=== PATIENT | female | born 1995 | race Caucasian/White ===

== ENCOUNTER 2020-04-21 11:25 | Emergency (ER) | payer OTHER, SELFPAY ==
[2020-04-21 11:43] VITALS: BP 117/73; PULSE 79; RESP 18; TEMP 37.3; O2SAT 97; BMI 37.5
--- NOTE | 2020-04-21 11:50 | XR_ITS ---
EXAMINATION: XR CHEST CLINICAL INFORMATION: Dyspnea. COMPARISON: None TECHNIQUE: Frontal view of the chest was obtained. FINDINGS: No significant abnormality is noted involving the heart, lungs, mediastinum, bony thorax or soft tissues. XR/XR chest 1V IMPRESSION: Unremarkable chest examination.
--- NOTE | 2020-04-21 11:56 | ED_ITS ---
HPI - URI/Sore Throat General Chief Complaint: Upper Respiratory Symptoms Stated Complaint: cough Time Seen by Provider: 04/21/20 11:50 Source: patient Mode of arrival: ambulatory Limitations: no limitations History of Present Illness HPI Narrative: 24 yo female with runny nose post nasal drip states she had CXR 03/11 at [facility] thinks she might have had pneumonia, her runny nose and clear mucous is mostly at night while laying flat has not taken any allergy medications MD elicited complaint: cough and rhinorrhea Onset (ago): month(s) (2) Consistency: intermittent Severity: mild Description of mucous: clear Able to tolerate fluids by mouth: Yes Exacerbating factors: supine positioning Relieving factors: nothing Associated symptoms: rhinorrhea Treatments prior to arrival: none Related Data Previous Rx's Medication Instructions Recorded cetirizine 10 mg PO DAILY PRN #30 cap 04/21/20 fluticasone propionate 1 spray INTRANASAL DAILY #9.9 ml 04/21/20 Allergies Allergy/AdvReac Type Severity Reaction Status Date / Time No Known Allergies Allergy Verified 04/21/20 11:43 Review of Systems Review of Systems: Constitutional : No Weight loss, No Fever, No Chills, No Fatigue, No Malaise ENT/Mouth : No sore throat,pos Rhinorrhea Eyes: No Eye Pain, No Swelling, No Redness Cardiovascular : No Chest Pain, No SOB, No Dyspnea on Exertion, No Orthopnea, No Edema, No Palpitations Respiratory : pos Cough, No Sputum, No Wheezing Gastrointestinal : No Nausea, No Vomiting, No Diarrhea, No Constipation, No abdominal Pain, No Hematochezia, No Melena Genitourinary : No Dysuria, No Urinary Frequency, No Hematuria, Musculoskeletal : No joint pain, No Myalgias, No Joint Swelling Skin : No Skin Lesions, No rash Neuro : No Weakness, No Numbness, No Dizziness, No Headache PMFSH Past Medical History Attestation statement: The following information was validated with the patient. Medical History WPW (Jsnui-Klyrzefuc-Mlqve syndrome) Social History Social History (Updated 04/21/20 @ 12:06 by Anabella Beck DO) Smoking Status: Never smoker Advance Directives: No Advance Directives Information Provided: No Physical Exam Vital Signs: Vital Signs: Last Vital Signs Temp 99.2 F 04/21/20 11:43 Pulse 79 04/21/20 11:43 Resp 18 04/21/20 11:43 BP 117/73 04/21/20 11:43 Pulse Ox 97 04/21/20 11:43 Body Mass Index 37.5 Appearance: Alert. Oriented X3. No acute distress. Eyes: Pupils equal, round and reactive to light. ENT: Pharynx normal. Neck: Normal inspection. Neck supple. CVS: Normal heart rate and rhythm. Pulses normal. Respiratory: No respiratory distress. Breath sounds normal. Abdomen: Soft and -. Skin: Skin warm and dry. Normal skin color. Normal skin turgor. Extremities: No lower extremity edema. No calf ttp Neuro: Oriented X 3. No motor deficit. No sensory deficit. MDM - URI/Sore Throat MDM Narrative Medical decision making narrative: 24 yo female with longstanding runny nose worse at night when laying down, thinks she might have had pneumonia at [facility] in March but no treatmetns and the story is vague - her history seems mostly con sistent with post nasal drip, will obtain CXR, COVID swab, start on zyrtec and flonase dispo per results and findings. Lab Data Labs: Lab Results 04/21/20 Range/Units 12:15 Coronavirus (PCR) NEGATIVE (Negative) Influenza Type A (PCR) NEGATIVE (Negative) Influenza Type B (PCR) NEGATIVE (Negative) RSV RNA Qual (PCR) NEGATIVE (Negative) Discharge Plan Discharge Clinical Impression: Allergic rhinitis Qualifiers: Allergic rhinitis trigger: unspecified Allergic rhinitis seasonality: unspecified Qualified Code(s): J30.9 - Allergic rhinitis, unspecified Patient Disposition: Home, Self-Care Instructions: Allergic Rhinitis (ED) Additional Instructions: return to ED for any worsening symptoms or concerns YOUR CHEST XRAY WAS NORMAL AND SHOWED NO PNEUMONIA, YOUR COVID FLU AND RSV SWABS WERE NEGATIVE Prescriptions: New fluticasone propionate 50 mcg/actuation spray,suspension 1 spray intranasal DAILY Qty: 9.9 RF: 1 cetirizine 10 mg capsule 10 mg PO DAILY PRN (Reason: allergy symptoms) Qty: 30 RF: 1 Referrals: Physician,None [Primary Care Provider] - 1 week (PCP IF NOT BETTER 1 WEEK) Stand Alone Forms: Work/School Release
[2020-04-21 13:09] LABS: Influenza A PCR NEGATIVE (Negative); Influenza B PCR NEGATIVE (Negative); Resp Syncy Virus RNA Qual PCR NEGATIVE (Negative); SARS COV2 PCR INHOUSE NEGATIVE (Negative)
== END 2020-04-21 13:45 | disposition home or self-care (01) ==
PROVIDERS: Emergency Provider Emergency Medicine
DX: J30.9 Allergic rhinitis, unspecified (principal); Z20.822 Contact with and (suspected) exposure to COVID-19; Z79.899 Other long term (current) drug therapy
CPT/HCPCS: 0241U; 36415; 71045; 99283

== ENCOUNTER 2020-05-17 11:20 | Emergency (ER) | payer OTHER, SELFPAY ==
--- NOTE | ~2020-05-17 | XR_ITS ---
EXAMINATION: XR RIBS, RIGHT CLINICAL INFORMATION: Rib pain COMPARISON: Chest x-ray of April 21, 2020 TECHNIQUE: PA chest and 3 views of the right ribs FINDINGS: There is no evidence of acute parenchymal disease, pneumothorax, or pleural effusion. Heart normal size. No evidence of pulmonary edema. 3 views of the right ribs do not demonstrate any abnormal destructive bony lesions. On the single view there is question of a nondisplaced fracture anterior aspect of the right ninth rib. XR/XR ribs RT min 3V w CXR1V IMPRESSION: No acute parenchymal disease within the chest. Question nondisplaced fracture anterior aspect right ninth rib.
[2020-05-17 11:42] VITALS: BP 104/66; PULSE 86; RESP 16; TEMP 36.9; O2SAT 97; BMI 41.9
--- NOTE | 2020-05-17 13:23 | ED.GENADULT ---
HPI - General Adult General Chief complaint: General Medical Stated complaint: lump on side Time Seen by Provider: 05/17/20 13:23 Source: patient Mode of arrival: ambulatory Limitations: no limitations History of Present Illness HPI narrative: 24 y/o female presenting with painful area under her right breast. She states 2 days ago she felt a small bump that was tender to touch. She denies trauma or recent injury. She has been wearing a bra that was too tight with an underwire that was digging into her. She has been rubbing it and it got slightly bigger and more painful. She denies any SOB, fever, chills, no skin changes, no breast masses that she could feel. She is concerned about lung cancer because her mother had lung cancer at a young age. She is a former smoker. MD complaint: right anterior chest tenderness Onset (ago): day(s) (2) Location: chest Radiation: non-radiation Severity: mild Quality: aching Pain Consistency: intermittent Relieving factors: rest Exacerbating factors: other (palpation) Associated symptoms: denies other symptoms Treatments prior to arrival: none Related Data Previous Rx's Medication Instructions Recorded cetirizine 10 mg PO DAILY PRN #30 cap 04/21/20 fluticasone propionate 1 spray INTRANASAL DAILY #9.9 ml 04/21/20 cyclobenzaprine 5 mg PO TID PRN #6 tab 05/17/20 ibuprofen 600 mg PO Q8H PRN #15 tab 05/17/20 lidocaine [Lidoderm] 1 patch TOPICAL DAILY #15 ea 05/17/20 Allergies Allergy/AdvReac Type Severity Reaction Status Date / Time No Known Allergies Allergy Verified 05/17/20 11:49 Review of Systems Review of Systems: Constitutional: No Fever, No Chills Cardiovascular: + Chest Pain (only on palpation) No SOB Respiratory: No Cough, No Sputum, No Wheezing, No dyspnea Gastrointestinal: No Nausea, No Vomiting, No Diarrhea, No abdominal Pain Genitourinary: No Dysuria, No Urinary Frequency, No Hematuria Musculoskeletal: No joint pain, No Myalgias Skin: No Skin Lesions, No rash Neuro: No Weakness, No Numbness, No Dizziness, No Headache Psych: No Anxiety/Panic, No Depression Heme/Lymph: No Bruising, No Lymphadenopathy PMFSH Past Medical History Attestation statement: The following information was validated with the patient. Medical History WPW (Fsukm-Vnlzannly-Xecap syndrome) Social History Social History (Updated 04/21/20 @ 12:06 by Anabella Beck DO) Smoking Status: Never smoker Advance Directives: No Advance Directives Information Provided: Yes Physical Exam Vital Signs: Vital Signs: Last Vital Signs Temp 98.4 F 05/17/20 11:42 Pulse 86 05/17/20 11:42 Resp 16 05/17/20 11:42 BP 104/66 05/17/20 11:42 Pulse Ox 97 05/17/20 11:42 Body Mass Index 41.9 Appearance: Alert. Oriented X3. No acute distress. HEENT: normal inspection CVS: Normal heart rate and rhythm. Pulses normal. Respiratory: No respiratory distress. Lungs CTAB. Right anterior chest tenderness under right breast with soft tissue tenderness, no palpable mass. no breast mass or axillary LAD. No skin changes. Skin: Skin warm and dry. Normal skin color. Normal skin turgor. No rashes. Extremities: atraumatic, no edema, multiple tattoos. Neuro: Oriented X 3. No motor deficit. No sensory deficit. Course Course Course Narrative: 24 y/o female with right anterior chest pain after she was wearing a bra that was too tight. Exam is benign. CXR/Rib XR shows ?right anterior rib fx. She denies history of recent trauma but reports old fall with injury to the right side many months ago. No SOB. It is likely soft tissue/muscle wall irritation directly related to her bra. She was counseled on management and encouraged to f/u with her PCP if the pain persists or if she feels the lump persist. She is stable for discharge. Discharge Plan Discharge Clinical Impression: Chest wall pain Patient Disposition: Home, Self-Care Instructions: Chest Wall Pain (ED) Additional Instructions: Use ice to the area several times per day. Avoid massaging it and let it rest. Take the prescribed medications as needed for pain. Wear a wireless bra or a sports bra until the pain is resolved. Follow up with your doctor next week. If the pain worsens come back to the ER for further evalaution. Prescriptions: New lidocaine [Lidoderm] 5 % adhesive patch,medicated 1 patch topical DAILY Qty: 15 RF: 0 ibuprofen 600 mg tablet 600 mg PO Q8H PRN (Reason: pain) Qty: 15 RF: 0 cyclobenzaprine 5 mg tablet 5 mg PO TID PRN (Reason: muscle spasm) Qty: 6 RF: 0 No Action fluticasone propionate 50 mcg/actuation spray,suspension 1 spray intranasal DAILY Qty: 9.9 RF: 1 cetirizine 10 mg capsule 10 mg PO DAILY PRN (Reason: allergy symptoms) Qty: 30 RF: 1
== END 2020-05-17 13:50 | disposition home or self-care (01) ==
PROVIDERS: Emergency Provider Emergency Medicine Emergency Medical Services
DX: R07.89 Other chest pain (principal)
CPT/HCPCS: 71101; 99283

== ENCOUNTER 2021-06-06 16:55 | Emergency (ER) | payer MEDICAID, SELFPAY ==
[2021-06-06 17:00] VITALS: BP 134/85; PULSE 94; RESP 18; TEMP 36.8; O2SAT 96; BMI 37.1
[2021-06-06 17:24] LABS: Appearance Urine CLOUDY; Color Urine YELLOW; Glucose Urine UA NEG (NEG); Leukocyte Esterase Urine TRACE (NEG); Nitrite Urine NEG (NEG); UACC Culture Trigger YES; Urine Blood 2+ (NEG); Urine Ketones NEG (NEG); Urine Protein NEG (NEG-TRACE)
[2021-06-06 17:30] LABS: UPreg QC Valid YES; Urine Pregnancy NEGATIVE (NEGATIVE)
--- NOTE | 2021-06-06 17:39 | ED.FEMALEGU ---
HPI - Female Genitourinary General Chief complaint: Urogenital-Female Stated complaint: ?uti Time Seen by Provider: 06/06/21 17:13 History of Present Illness HPI Narrative: I did not see this patient there is a full note from Dr. jay Related Data Previous Rx's Medication Instructions Recorded cetirizine 10 mg capsule 10 mg PO DAILY PRN #30 cap 04/21/20 fluticasone propionate 50 1 spray INTRANASAL DAILY #9.9 ml 04/21/20 mcg/actuation nasal spray,suspension cyclobenzaprine 5 mg tablet 5 mg PO TID PRN #6 tab 05/17/20 ibuprofen 600 mg tablet 600 mg PO Q8H PRN #15 tab 05/17/20 lidocaine 5 % topical patch 1 patch TOPICAL DAILY #15 ea 05/17/20 (Lidoderm) doxycycline hyclate 100 mg tablet 100 mg PO Q12H 14 Days #28 tab 06/06/21 metronidazole 500 mg tablet 500 mg PO BID 14 Days #28 tab 06/06/21 Allergies Allergy/AdvReac Type Severity Reaction Status Date / Time No Known Allergies Allergy Verified 05/17/20 11:49 COUNTS INCLUDE 234 BEDS AT THE [facility] Past Medical History Medical History WPW (Irxyy-Oithxkvpl-Nuojj syndrome) Social History Social History (Updated 04/21/20 @ 12:06 by Anabella Beck DO) Advance Directives: No Advance Directives Information Provided: No Patient : Yes Physical Exam Vital Signs: Vital Signs: Last Vital Signs Temp 98 F 06/06/21 18:41 Pulse 87 06/06/21 18:41 Resp 18 06/06/21 18:41 BP 129/84 06/06/21 18:41 Pulse Ox 99 06/06/21 18:41 BMI result Body Mass Index 37.1 MDM - Female Genitourinary Lab Data Labs: Lab Results 06/06/21 06/06/21 06/06/21 Range/Units 17:17 17:17 18:15 Urine Color YELLOW Urine Appearance CLOUDY Urine pH 7.0 (5.0-8.0) Ur Specific [place] 1.020 (1.005-1.025) Urine Protein NEG (NEG-TRACE) MG/DL Urine Glucose (UA) NEG (NEG) MG/DL Urine Ketones NEG (NEG) MG/DL Urine Blood 2+ H (NEG) Urine Nitrite NEG (NEG) Ur Leukocyte Esterase TRACE H (NEG) Urine RBC 0-2 (0) /HPF Urine WBC 15-29 H (0-4) /HPF Ur Squamous Epith Cells 2+ /LPF Amorphous Sediment 3+ /LPF Urine Bacteria 1+ /LPF Urine Test NEGATIVE (NEGATIVE) Chlam trachomat DNA PCR NOT DETECTED (Not Detect.) N.gonorrhoeae DNA (PCR) NOT DETECTED (Not Detect.) Discharge Plan Discharge Clinical Impression: Acute pelvic inflammatory disease, Dysuria Patient Disposition: Home, Self-Care Additional Instructions: PID instructions: Your presentation and physical findings are consistent with pelvic inflammatory disease (PID). Approximately 30% of the time, pelvic inflammatory disease is caused by sexually transmitted diseases such as Trichomonas, gonorrhea or chlamydia. Approximately 70% of the time, pelvic inflammatory disease is caused by abnormal bacteria (anaerobic bacteria) in your vagina that can cause an infection You received ceftriaxone 500 mg intramuscularly here in the emergency department Take doxycycline 100 mg, 1 pill twice a day for 14 days. Take metronidazole 500 mg, 1 pill twice a day for 14 days. These 3 antibiotics treat sexually transmitted diseases such as gonorrhea, chlamydia and Trichomonas as well as anaerobic bacteria that can cause pelvic inflammatory disease. Pain medications instructions Take ibuprofen 200 mg pills, 3 pills every 6 hours as needed for pain. Take Tylenol (acetaminophen) 500 mg pills, 2 pills every 4 to 6 hours as needed for pain. Follow-up instructions Follow-up with [facility] in [place] in 7-10 days for re-evaluation. Call them for an appointment. Their phone number is [phone]? They can test you for HIV and syphilis as well. Your tested today for Gonorrhea and chlamydia (urine testing) No sex until you have completed your full course of antibiotics and you have been re-evaluated by [facility]. Please return to the emergency department if your symptoms get worse or if you develop any symptoms that are concerning to you. Prescriptions: New doxycycline hyclate 100 mg tablet 100 mg PO Q12H 14 Days Qty: 28 0RF metronidazole 500 mg tablet 500 mg PO BID 14 Days Qty: 28 0RF No Action fluticasone propionate 50 mcg/actuation spray,suspension 1 spray intranasal DAILY Qty: 9.9 1RF Rx Instructions: administer into each nostril cetirizine 10 mg capsule 10 mg PO DAILY PRN (Reason: allergy symptoms) Qty: 30 1RF lidocaine [Lidoderm] 5 % adhesive patch,medicated 1 patch topical DAILY Qty: 15 0RF Rx Instructions: leave on most painful area for up to 12 hrs ibuprofen 600 mg tablet 600 mg PO Q8H PRN (Reason: pain) Qty: 15 0RF cyclobenzaprine 5 mg tablet 5 mg PO TID PRN (Reason: muscle spasm) Qty: 6 0RF Interventions: ED Discharge Assessment Last Done: 06/06/21 18:48 Discharge Date/Time: 06/06/21 18:50
[2021-06-06 17:46] LABS: Amorphous Sediment Urine 3+ /LPF; Bacteria Urine 1+ /LPF; RBC Urine 0-2 /HPF (0); Squamous Epithelial Cell Urine 2+ /LPF
--- NOTE | 2021-06-06 18:13 | ED_ITS ---
HPI - Female Genitourinary General Chief complaint: Urogenital-Female Stated complaint: ?uti Time Seen by Provider: 06/06/21 17:13 Source: patient Mode of arrival: ambulatory Limitations: no limitations History of Present Illness HPI Narrative: 25-year-old female who presents emergency department for evaluation of burning with urination, urinary frequency and lower abdominal pain. The patient states she has had her symptoms for 1 week. She states that she is sexually active with 1 partner and she is concerned that her partner may have been cheating on her. Patient states that she has had pelvic inflammatory disease in the recent past but did not get treated. She states that she has the Nexplanon implanted control and her menstrual periods are regular. She states that recently she was bleeding a for approximately 1-2 weeks and states that her symptoms started after her menstrual period. She had a subjective fever at home. She had nausea with 1 episode of vomiting. She has not noticed a vaginal discharge. She states she is having pain and she points to her suprapubic and lower abdominal area. She describes this as a intermittent cramping sensation which is oavh-ax-doovbejl in intensity. Related Data Previous Rx's Medication Instructions Recorded cetirizine 10 mg capsule 10 mg PO DAILY PRN #30 cap 04/21/20 fluticasone propionate 50 1 spray INTRANASAL DAILY #9.9 ml 04/21/20 mcg/actuation nasal spray,suspension cyclobenzaprine 5 mg tablet 5 mg PO TID PRN #6 tab 05/17/20 ibuprofen 600 mg tablet 600 mg PO Q8H PRN #15 tab 05/17/20 lidocaine 5 % topical patch 1 patch TOPICAL DAILY #15 ea 05/17/20 (Lidoderm) doxycycline hyclate 100 mg tablet 100 mg PO Q12H 14 Days #28 tab 06/06/21 metronidazole 500 mg tablet 500 mg PO BID 14 Days #28 tab 06/06/21 Allergies Allergy/AdvReac Type Severity Reaction Status Date / Time No Known Allergies Allergy Verified 05/17/20 11:49 Review of Systems Review of Systems: Yes all other systems are reviewed and are negative [facility] Past Medical History [facility] Narrative: Past medical history: Fizov-Yufnwllnr-Gquzd status post ablation. Past surgical history: None. Social history: The patient smokes cigarettes daily. She occasionally drinks alcohol. She denies drug use. Medical History WPW (Pphfo-Jtvabodes-Vpfcu syndrome) Social History Social History (Updated 04/21/20 @ 12:06 by Anabella Beck DO) Advance Directives: No Advance Directives Information Provided: No Patient : Yes Physical Exam Vital Signs: Vital Signs: Last Vital Signs Temp 98.2 F 06/06/21 17:00 Pulse 94 06/06/21 17:00 Resp 18 06/06/21 17:00 BP 134/85 06/06/21 17:00 Pulse Ox 96 06/06/21 17:00 BMI result Body Mass Index 37.1 Const: General: cooperative and no acute distress Orientation/consci ousness: oriented to person and oriented to place Limitations: no limitations HENMT: Head: Yes normal to inspection, Yes normocephalic and Yes atraumatic Ears: external ears normal General nose exam: Normal external nose present Face and sinus: Yes normal facial exam Mouth: Normal oral and palatal mucosa present Throat: Yes posterior oropharynx normal Eyes: General: appearance normal, both eyes and all related structures Pupils: Equal, round and reactive pupils present Neck: Neck: Yes normal visual inspection, Yes no lymphadenopathy, Yes trachea midline and Yes supple Chest: Chest palpation & inspection: normal inspection of the chest and normal palpation of entire chest wall Resp: Effort & Inspection: normal respiratory effort and able to speak in complete sentences Auscultation: clear to auscultation bilaterally Cardio: Rate: regular rate Rhythm: regular rhythm Heart sounds: S1 normal heart sound present, S2 normal heart sound present and no murmurs GI: Inspection: Yes normal to inspection Palpation (GI): Soft to palpation, Tenderness to palpation present (GI) suprapubicly ([id number]) and no guarding Auscultation: normal bowel sounds : General: Yes no CVA tenderness Back/Spine/Pelvis: Back: no CVA tenderness Skin: General skin exam: no rashes or lesions noted Neuro: General: oriented to person and oriented to place Cranial nerves: Yes CN's II-XII intact bilaterally and Yes Equal, round and reactive pupils pre sent Cognition (Neuro): normal cognition Motor exam (neuro): 5/5 motor strength present throughout Extrem: General: Yes normal to inspection Psych: Appearance: grossly normal Speech and movement: Normal speech and movement present Affect: normal affect Attitude: cooperative Thought process: Normal thought process present Thought content: Normal thought content present Course Course Course Narrative: 25-year-old female who presents emergency department for evaluation of dysuria and lower abdominal pain x1 week. Patient states that she had PID recently but was not treated. She is sexually active and she is concerned that her sexual partner has been cheating on her. Vital signs were normal. Examination did reveal suprapubic tenderness. Urinalysis revealed 2+ blood, trace leukocyte esterase. Microscopic revealed 0-2 RBCs, 15-29 WBCs, 2+ squamous epithelial cells, 1+ bacteria. Urine test was negative. I am concerned that the patient's presentation findings are consistent with PID. A non clean catch urine was sent for gonorrhea and chlamydia. The patient will be treated for STDs with ceftriaxone 500 mg/lidocaine IM. She was prescribed doxycycline 100 mg twice a day for 14 days and metronidazole 500 mg twice a day for 10 days. I told her that she cannot have sex with her sexual partner until her gonorrhea and chlamydia test come back. Patient is interested in being tested for HIV and syphilis therefore she will be referred to [facility] in [place]. She was given printed and verbal instructions on PID and discharged home. MDM - Female Genitourinary Lab Data Labs: Lab Results 06/06/21 06/06/21 Range/Units 17:17 17:17 Urine Color YELLOW Urine Appearance CLOUDY Urine pH 7.0 (5.0-8.0) Ur Specific [place] 1.020 (1.005-1.025) Urine Protein NEG (NEG-TRACE) MG/DL Urine Glucose (UA) NEG (NEG) MG/DL Urine Ketones NEG (NEG) MG/DL Urine Blood 2+ H (NEG) Urine Nitrite NEG (NEG) Ur Leukocyte Esterase TRACE H (NEG) Urine RBC 0-2 (0) /HPF Urine WBC 15-29 H (0-4) /HPF Ur Squamous Epith Cells 2+ /LPF Amorphous Sediment 3+ /LPF Urine Bacteria 1+ /LPF Urine Test NEGATIVE (NEGATIVE) Discharge Plan Discharge Clinical Impression: Acute pelvic inflammatory disease, Dysuria Patient Disposition: Home, Self-Care Additional Instructions: PID instructions: Your presentation and physical findings are consistent with pelvic inflammatory disease (PID). Approximately 30% of the time, pelvic inflammatory disease is caused by sexually transmitted diseases such as Trichomonas, gonorrhea or chlamydia. Approximately 70% of the time, pelvic inflammatory disease is caused by abnormal bacteria (anaerobic bacteria) in your vagina that can cause an infection You received ceftriaxone 500 mg intramuscularly here in the emergency department Take doxycycline 100 mg, 1 pill twice a day for 14 days. Take metronidazole 500 mg, 1 pill twice a day for 14 days. These 3 antibiotics treat sexually transmitted diseases such as gonorrhea, chlamydia and Trichomonas as well as anaerobic bacteria that can cause pelvic inflammatory disease. Pain medications instructions Take ibuprofen 200 mg pills, 3 pills every 6 hours as needed for pain. Take Tylenol (acetaminophen) 500 mg pills, 2 pills every 4 to 6 hours as needed for pain. Follow-up instructions [facility] [place] in 7-10 days for re-evaluation. Call them for an appointment. Their phone number is [phone]? They can test you for HIV and syphilis as well. Your tested today for Gonorrhea and chlamydia (urine testing) No sex until you have completed your full course of antibiotics and [facility] Please return to the emergency department if your symptoms get worse or if you develop any symptoms that are concerning to you. Prescriptions: New doxycycline hyclate 100 mg tablet 100 mg PO Q12H 14 Days Qty: 28 0RF metronidazole 500 mg tablet 500 mg PO BID 14 Days Qty: 28 0RF No Action fluticasone propionate 50 mcg/actuation spray,suspension 1 spray intranasal DAILY Qty: 9.9 1RF Rx Instructions: administer into each nostril cetirizine 10 mg capsule 10 mg PO DAILY PRN (Reason: allergy symptoms) Qty: 30 1RF lidocaine [Lidoderm] 5 % adhesive patch,medicated 1 patch topical DAILY Qty: 15 0RF Rx Instructions: leave on most painful area for up to 12 hrs ibuprofen 600 mg tablet 600 mg PO Q8H PRN (Reason: pain) Qty: 15 0RF cyclobenzaprine 5 mg tablet 5 mg PO TID PRN (Reason: muscle spasm) Qty: 6 0RF
[2021-06-06] MEDS: cefTRIAXone sodium 500 MG, Lidocaine HCl 1 % MPF 1 ML IM (18:39)
[2021-06-06 18:41] VITALS: BP 129/84; PULSE 87; RESP 18; TEMP 36.6; O2SAT 99
[2021-06-07 01:28] LABS: CT PCR NOT DETECTED (Not Detect.); NG PCR NOT DETECTED (Not Detect.)
== END 2021-06-06 18:50 | disposition home or self-care (01) ==
PROVIDERS: Emergency Provider Emergency Medicine Emergency Medical Services
DX: N73.0 Acute parametritis and pelvic cellulitis (principal); R30.0 Dysuria
CPT/HCPCS: 81001; 81025; 87086; 87088; 87186; 87491; 87591; 96372; 99283; 99284; J0696